=== PATIENT | male | born 1965 | race African-American/Black ===

== ENCOUNTER 2021-11-14 10:15 | Emergency (ER) | payer MEDICAID, OTHER ==
[~2021-11-14] VITALS: Ht 172.7 cm; Wt 113.6 kg
[2021-11-14] MEDS ORDERED: SODIUM CHLORIDE 0.9% 1,000 ML IV ONE (10:45)
[2021-11-14] MEDS ORDERED: ONDANSETRON HCL 4MG/2ML INJ IV ONE (10:45)
[2021-11-14] MEDS ORDERED: ACTIVATED CHARCOAL 50 G/240 ML TUBE PO ONE (10:45)
[2021-11-14 11:33] LABS: BASOPHILS % 2.5 % (0.0-2.0); EOSINOPHILS % 1.5 % (0.0-5.0); HEMATOCRIT. 41.2 % (42.0-52.0); HEMOGLOBIN. 13.9 g/dL (14.0-18.0); LYMPHOCYTES % 36.8 % (20.0-50.0); MEAN CORPUSCULAR HEMOGLOBIN 28.2 pg (28.0-32.0); MEAN CORPUSCULAR VOLUME 83.6 fL (80.0-94.0); MEAN PLATELET VOLUME 8.3 fl (7.4-10.4); MONOCYTES % 7.3 % (2.0-8.0); NEUTROPHILS % 51.9 % (40.0-76.0); PLATELET 346 x1000/uL (130-400); RED BLOOD CELL COUNT 4.93 mill/uL (4.7-6.1); RED CELL DISTRIBUTION WIDTH 17.1 % (11.6-14.6)
[2021-11-14 11:40] LABS: CHLORIDE 100 mEq/L (98-107)
[2021-11-14 11:47] LABS: ETHANOL BLOOD 234 mg/dL
[2021-11-14 12:27] LABS: CLARITY URINE CLEAR (CLEAR); COLOR URINE YELLOW (YELLOW); KETONES URINE 3+ (NEGATIVE); LEUKOCYTE ESTERASE URINE NEGATIVE (NEGATIVE); NITRITE URINE NEGATIVE (NEGATIVE); OCCULT BLOOD URINE TRACE (NEGATIVE); PROTEIN URINE 3+ (NEGATIVE); SPECIFIC GRAVITY URINE 1.022 (1.005-1.030)
[2021-11-14 12:38] LABS: CHLORIDE 101 mEq/L (98-107)
[2021-11-14 12:52] LABS: *AMPHETAMINES SCREEN URINE NEGATIVE (NEGATIVE); *BARBITURATES SCREEN URINE NEGATIVE (NEGATIVE); *BENZODIAZEPINES SCREEN URINE PRESUMTIVE POSITIVE (NEGATIVE); *COCAINE SCREEN URINE NEGATIVE (NEGATIVE); CANNABINOID URINE SCREEN PRESUMTIVE POSITIVE (NEGATIVE); METHADONE URINE SCREEN NEGATIVE (NEGATIVE); OPIATES URINE SCREEN NEGATIVE (NEGATIVE); PHENCYCLIDINE URINE SCREEN NEGATIVE (NEGATIVE)
[2021-11-14] MEDS ORDERED: TOBRAMYCIN 0.3% OPHTH DROPS 5ML OP STA (15:18)
[2021-11-14] MEDS ORDERED: LORAZEPAM 1MG TABLET PO ONE (15:30)
[2021-11-14] MEDS ORDERED: ALBUTEROL (0.083%) 2.5MG/3ML NEB HHN ONE (22:00)
[2021-11-14] MEDS ORDERED: DIAZEPAM 5 MG/ML 2ML CPJ IV ONE (22:00)
[2021-11-15] MEDS ORDERED: QUETIAPINE FUMARATE 50MG TABLET PO SCH ×2 (11:15→21:00)
[2021-11-15] MEDS: BUSPIRONE HCL 5MG TABLET PO SCH ×2 (11:41→21:26)
[2021-11-15] MEDS: FLUOXETINE HCL 20MG CAPSULE PO SCH (11:41)
[2021-11-15] MEDS ORDERED: IPRATROPIUM/ALBUTEROL 0.5-3(2.5)MG/3ML NEB HHN PRN (12:15)
[2021-11-15] MEDS ORDERED: ACETAMINOPHEN 325MG TABLET PO PRN (12:15)
[2021-11-15] MEDS ORDERED: DOCUSATE SODIUM 100MG CAPSULE PO PRN (12:15)
[2021-11-15] MEDS ORDERED: ONDANSETRON HCL 4MG/2ML INJ IV PRN (12:15)
[2021-11-15] MEDS ORDERED: NALOXONE HCL 0.4 MG/ML 1ML VIAL IV PRN (12:15)
[2021-11-15] MEDS: THIAMINE HCL 100MG TABLET PO SCH (12:50)
[2021-11-15] MEDS: FOLIC ACID 1MG TABLET PO SCH (12:51)
[2021-11-15] MEDS: MULTIVITAMINS,THER W-MINERALS TABLET PO SCH (12:51)
[2021-11-15] MEDS: HYDROCODONE/ACETAMINOPHEN 5/325MG TABLET PO PRN ×2 (15:55→16:11)
[2021-11-15] MEDS: LORAZEPAM 0.5MG TABLET PO PRN ×3 (15:55→21:26)
[2021-11-15] MEDS: CLONIDINE 0.1MG TABLET PO PRN (18:56)
[2021-11-15] MEDS: METOPROLOL TARTRATE 25MG TABLET PO SCH (21:26)
[2021-11-16] MEDS: CLONIDINE 0.1MG TABLET PO PRN ×2 (01:12→08:20)
[2021-11-16] MEDS: ACETAMINOPHEN 325MG TABLET PO PRN ×2 (08:21→15:48)
[2021-11-16] MEDS: BUSPIRONE HCL 5MG TABLET PO SCH ×2 (09:58→21:00)
[2021-11-16] MEDS: MULTIVITAMINS,THER W-MINERALS TABLET PO SCH (09:58)
[2021-11-16] MEDS: FOLIC ACID 1MG TABLET PO SCH (09:58)
[2021-11-16] MEDS: THIAMINE HCL 100MG TABLET PO SCH (09:58)
[2021-11-16] MEDS: METOPROLOL TARTRATE 25MG TABLET PO SCH ×2 (09:59→21:00)
[2021-11-16] MEDS ORDERED: FOLI-43 PO (10:21)
[2021-11-16] MEDS ORDERED: MULT-230 MT (10:21)
[2021-11-16] MEDS ORDERED: DOCU-150 PO (10:21)
[2021-11-16] MEDS ORDERED: BUSP5TAB3 PO (10:21)
[2021-11-16] MEDS: FLUOXETINE HCL 20MG CAPSULE PO SCH (10:21)
[2021-11-16] MEDS ORDERED: METO25TA6 PO (10:21)
[2021-11-16] MEDS ORDERED: QUET50TA PO (10:21)
[2021-11-16] MEDS ORDERED: FLUO20CA39 PO (10:21)
[2021-11-16] MEDS ORDERED: THIA100T72 PO (10:21)
[2021-11-16] MEDS: POLYETHYLENE GLYCOL 3350 (17GM) 1 DOSE PACK PO SCH (10:30)
[2021-11-16] MEDS: DOCUSATE SODIUM 100MG CAPSULE PO SCH ×2 (10:30→18:09)
[2021-11-16] MEDS: PANTOPRAZOLE SODIUM 40 MG/VIAL IV SCH (10:37)
[2021-11-16] MEDS: LORAZEPAM 0.5MG TABLET PO PRN ×2 (11:31→15:48)
[2021-11-16] MEDS: NICOTINE 21MG PATCH TOP SCH (11:38)
[2021-11-16 16:28] LABS: BASOPHILS % 1.2 % (0.0-2.0); EOSINOPHILS % 9.1 % (0.0-5.0); HEMATOCRIT. 38.2 % (42.0-52.0); HEMOGLOBIN. 12.7 g/dL (14.0-18.0); LYMPHOCYTES % 37.9 % (20.0-50.0); MEAN CORPUSCULAR HEMOGLOBIN 28.2 pg (28.0-32.0); MEAN CORPUSCULAR VOLUME 84.7 fL (80.0-94.0); MEAN PLATELET VOLUME 8.6 fl (7.4-10.4); MONOCYTES % 10.2 % (2.0-8.0); NEUTROPHILS % 41.6 % (40.0-76.0); PLATELET 244 x1000/uL (130-400); RED BLOOD CELL COUNT 4.51 mill/uL (4.7-6.1); RED CELL DISTRIBUTION WIDTH 16.7 % (11.6-14.6)
[2021-11-16 16:30] LABS: CHLORIDE 101 mEq/L (98-107)
[2021-11-16] MEDS: QUETIAPINE FUMARATE 50MG TABLET PO SCH (21:00)
[2021-11-17 05:59] LABS: BASOPHILS % 0.9 % (0.0-2.0); CHLORIDE 102 mEq/L (98-107); EOSINOPHILS % 10.1 % (0.0-5.0); HEMATOCRIT. 39.3 % (42.0-52.0); LYMPHOCYTES % 38.7 % (20.0-50.0); MEAN CORPUSCULAR VOLUME 84.7 fL (80.0-94.0); MEAN PLATELET VOLUME 8.7 fl (7.4-10.4); MONOCYTES % 12.5 % (2.0-8.0); NEUTROPHILS % 37.8 % (40.0-76.0); PLATELET 243 x1000/uL (130-400); RED BLOOD CELL COUNT 4.64 mill/uL (4.7-6.1); RED CELL DISTRIBUTION WIDTH 16.6 % (11.6-14.6)
[2021-11-17] MEDS: FLUOXETINE HCL 20MG CAPSULE PO SCH (09:00)
[2021-11-17] MEDS: NICOTINE 21MG PATCH TOP SCH (09:00)
[2021-11-17] MEDS: POLYETHYLENE GLYCOL 3350 (17GM) 1 DOSE PACK PO SCH (09:00)
[2021-11-17] MEDS: DOCUSATE SODIUM 100MG CAPSULE PO SCH ×2 (09:31→17:00)
[2021-11-17] MEDS: THIAMINE HCL 100MG TABLET PO SCH (09:31)
[2021-11-17] MEDS: BUSPIRONE HCL 5MG TABLET PO SCH ×2 (09:31→21:00)
[2021-11-17] MEDS: QUETIAPINE FUMARATE 50MG TABLET PO SCH (09:31)
[2021-11-17] MEDS: MULTIVITAMINS,THER W-MINERALS TABLET PO SCH (09:31)
[2021-11-17] MEDS: METOPROLOL TARTRATE 25MG TABLET PO SCH ×2 (09:32→21:00)
[2021-11-17] MEDS: FOLIC ACID 1MG TABLET PO SCH (09:32)
[2021-11-17] MEDS: LORAZEPAM 0.5MG TABLET PO PRN ×2 (09:32→17:12)
[2021-11-17] MEDS: PANTOPRAZOLE SODIUM 40 MG/VIAL IV SCH (09:32)
[2021-11-17] MEDS: CHLORDIAZEPOXIDE 25MG CAPSULE PO SCH ×2 (14:00→22:00)
[2021-11-17] MEDS: ACETAMINOPHEN 325MG TABLET PO PRN (23:08)
[2021-11-18 01:30] VITALS: BP 150/76
[2021-11-18] MEDS ORDERED: FAMOTIDINE 20MG/2ML VIAL IV SCH (09:00)
== END 2021-11-18 01:44 | disposition short-term general hospital (02) ==
LOC: ER 10:43 → MICUSO 11-15 08:18 → UNDOADMIN 11-15 08:18 → EDBEDREQ 11-15 08:26 → ER 11-18 01:44
DX: R45.851 Suicidal ideations (principal); F12.10 Cannabis abuse, uncomplicated; I49.9 Cardiac arrhythmia, unspecified; R06.02 Shortness of breath; Z88.8 Allergy status to other drugs, medicaments and biological substances; Z20.822 Contact with and (suspected) exposure to COVID-19
CPT/HCPCS: 36415; 80048; 80053; 80305; 80307; 80320; 80329; 81003; 82962; 83690; 85025; 93005; 94640; 96361; 96374; 96375; 99285; C9113; C9803; J2405; J7030; U0003; U0005; Z7610; G0480

== ENCOUNTER 2023-07-12 13:36 | Emergency (ER) | payer OTHER ==
[~2023-07-12] VITALS: Ht 182.9 cm; Wt 110.0 kg
[~2023-07-12 13:36] MED LIST: BUSP5TAB3 PO; DOCU-150 PO; FLUO20CA39 PO; FOLI-43 PO; METO25TA6 PO; MULT-230 MT; QUET50TA PO; THIA100T72 PO
[2023-07-12 13:37] VITALS: O2SAT 100
[2023-07-12 14:44] LABS: BASOPHILS % 0.4 % (0.0-2.0); EOSINOPHILS % 0.1 % (0.0-5.0); HEMATOCRIT. 41.1 % (42.0-52.0); HEMOGLOBIN. 13.7 g/dL (14.0-18.0); LYMPHOCYTES % 52.1 % (20.0-50.0); MEAN CORPUSCULAR HEMOGLOBIN 28.1 pg (28.0-32.0); MEAN CORPUSCULAR HGB CONC 33.5 g/dL (31.0-37.0); MEAN CORPUSCULAR VOLUME 83.9 fL (80.0-94.0); MEAN PLATELET VOLUME 8.3 fl (7.4-10.4); MONOCYTES % 7.3 % (2.0-8.0); NEUTROPHILS % 40.1 % (40.0-76.0); PLATELET 385 x1000/uL (130-400); RED BLOOD CELL COUNT 4.89 mill/uL (4.7-6.1); RED CELL DISTRIBUTION WIDTH 18.4 % (11.6-14.6); WHITE BLOOD COUNT 5.6 x1000/uL (4.5-11.0)
[2023-07-12 14:47] LABS: ACETAMINOPHEN < 2 ug/mL (10-30); ALANINE AMINOTRANSFERASE 21 IU/L (10-49); ALBUMIN 4.1 g/dL (3.2-4.8); ASPARTATE AMINOTRANSFERASE 27 IU/L (<34); BILIRUBIN TOTAL 0.3 mg/dL (0.1-1.0); CALCIUM 8.5 mg/dL (8.7-10.4); CARBON DIOXIDE 24 mEq/L (21-32); CHLORIDE 95 mEq/L (98-107); CREATININE 0.6 mg/dL (0.6-1.3); ETHANOL BLOOD 255 mg/dL (<10); GLUCOSE 72 mg/dL (70-105); POTASSIUM 3.8 mEq/L (3.5-5.1); SODIUM 131 mEq/L (136-145); UREA NITROGEN BLOOD 9 mg/dL (9-23)
[2023-07-12 16:28] LABS: *AMPHETAMINES SCREEN URINE NEGATIVE (NEGATIVE); *BARBITURATES SCREEN URINE NEGATIVE (NEGATIVE); *BENZODIAZEPINES SCREEN URINE PRESUMPTIVE POSITIVE (NEGATIVE); *COCAINE SCREEN URINE NEGATIVE (NEGATIVE); CANNABINOID URINE SCREEN NEGATIVE (NEGATIVE); ECSTASY MDMA SCREEN URINE NEGATIVE (NEGATIVE); METHADONE URINE SCREEN Neg (NEGATIVE); OPIATES URINE SCREEN NEGATIVE (NEGATIVE); PHENCYCLIDINE URINE SCREEN NEGATIVE (NEGATIVE)
[2023-07-12] MEDS ORDERED: CHLORDIAZEPOXIDE 25MG CAPSULE PO ONE (17:45)
[2023-07-13] MEDS ORDERED: LORAZEPAM 2MG/ML INJ IM ONE (01:45)
[2023-07-13] MEDS ORDERED: LORAZEPAM 2MG/ML INJ IM NR (02:00)
[2023-07-13] MEDS ORDERED: CHLORDIAZEPOXIDE 25MG CAPSULE PO PRN ×3 (04:00)
[2023-07-13] MEDS ORDERED: HYDRALAZINE HCL 50MG TABLET PO ONE (13:00)
[2023-07-13] MEDS ORDERED: ACETAMINOPHEN 325MG TABLET PO ONE (13:00)
[2023-07-13 14:00] VITALS: BP 153/82; PULSE 100; RESP 20; TEMP 98.9
== END 2023-07-13 15:27 | disposition short-term general hospital (02) ==
LOC: ER 14:07
DX: R45.851 Suicidal ideations (principal); F10.129 Alcohol abuse with intoxication, unspecified; F12.90 Cannabis use, unspecified, uncomplicated; F32.A Depression, unspecified; I10 Essential (primary) hypertension; Z20.822 Contact with and (suspected) exposure to COVID-19; Z88.8 Allergy status to other drugs, medicaments and biological substances; Y90.9 Presence of alcohol in blood, level not specified
CPT/HCPCS: 80053; 80305; 80307; 80329; 80320 ×2; 85025; 36415 ×2; 96372; 99285; 87426; J2060; G0480